=== PATIENT | male | born 1970 | race Caucasian/White ===

== ENCOUNTER 2016-10-26 21:06 | Observation (INO) ==
[2016-10-26] MEDS ORDERED: Ondansetron 4 MG/2 ML VIAL IVP ONE (22:30)
[2016-10-26] MEDS ORDERED: 0.9 % Sodium Chloride 1,000 ML IVC ONE (22:30)
[2016-10-26] MEDS ORDERED: *HR* HYDROmorphone (PF) 1 MG/ML SYRINGE IVP ONE (22:30)
--- NOTE | 2016-10-26 22:33 | Emergency Department Note ---
Disposition Clinical Impression: Acute appendicitis Qualifiers: Acute appendicitis type: with localized peritonitis Qualified Code(s): K35.3 - Acute appendicitis with localized peritonitis Disposition: Admitted As Inpatient Condition: Fair Referrals: NO,PCP [Non-Partnered Physician] - Forms: Work/School Release, ED Satisfaction Letter Time of Disposition: 23:15 Abdominal Pain HPI - General Chief Complaint: ED Abdominal Pain Stated Complaint: "i might have appendacitis" Time Seen by Provider: 10/26/16 22:27 Source: patient, family Mode of arrival: private vehicle Limitations: no limitations Nursing Notes Reviewed: Yes Vital Signs Reviewed: Yes - History of Present Illness Pt Subjective Complaint: abdominal pain Onset (ago): hour(s) (Started last night after dinner.) Consistency: constant, Worsening (Was gradual in onset and progressively worsening) Location: RLQ Pain Severity: severe Pain Scale: 9 Quality: sharp Radiation: none Migration to: no migration Improves with: nothing Worsens with: movement Associated symptoms: Reports: nausea, vomiting Treatments prior to arrival: none - Related Data Home Medications Medication Instructions Recorded Confirmed Atenolol [Tenormin] 50 mg PO DAILY 08/13/15 10/26/16 Allergies Allergy/AdvReac Type Severity Reaction Status Date / Time Amoxicillin Allergy Hives Verified 10/26/16 22:00 All systems ED: reviewed and negative except as stated. Constitutional: Denies: fever, chills ENT ED: Denies: ear pain, throat pain Cardiovascular: Denies: chest pain, palpitations Respiratory: Denies: cough, dyspnea Gastrointestinal: Reports: abdominal pain, nausea, vomiting Genitourinary: Denies: urgency, dysuria Musculoskeletal: Denies: back pain Integumentary: Denies: rash Abdominal Pain PMH - Past Medical History Medical history: Reports: coronary artery disease, hypertension Male Surgical History: Reports: non-contributory, other Psychiatric history: Reports: no psych history - Social History Smoking status: Current every day smoker Alcohol use: Reports: none Drug use: Reports: none Physical Exam - General Limitations: no limitations General appearance: alert - Head Head exam: atraumatic, normocephalic - Eye Eye exam: Present: normal appearance, PERRL - ENT ENT exam: normal exam, normal oropharynx, normal external ear exam - Neck Neck exam: Present: normal inspection, full ROM - Chest Chest inspection: Present: normal inspection, symmetric chest wall rise. Absent : tenderness - Respiratory Respiratory exam: Present: normal lung sounds bilaterally. Absent: respiratory distress - Cardiovascular Cardiovascular exam: Present: normal rhythm, tachycardia, normal heart sounds - Abdominal Exam Abdominal exam: Present: soft, tenderness, Rovsing's sign (Mild) Abdominal tenderness: Present: RLQ - Extremities Exam Extremities exam: Present: normal inspection, full ROM - Neurological Exam Neurological exam: Present: alert, oriented X3 - Psychiatric Psychiatric exam: Present: normal affect, normal mood - Skin Skin exam: Present: warm, dry. Absent: rash Course Course Narrative: Patient presents with abdominal pain since yesterday. The exam is very concerning for appendicitis. We will put an IV into him and give him some fluids. Lab workup will be started. I am going for the CT scan of the abdomen as well. Disposition will be based on diagnostic results and reevaluation. - Consultations Consultation #1: Radiologist called and said that the CAT scan shows acute appendicitis. I will call surgery. Time: 23:11 Consultation #2: Chantel, surgery - I's discussed the case with the surgeon behavioral consultant. She states that she will be right here to see the patient.. Time: 23:14 Vital Signs Temperature 99.3 F 10/26/16 22:01 Pulse Rate 116 10/26/16 22:01 Respiratory Rate 18 10/26/16 22:01 Blood Pressure 142/83 10/26/16 22:01 O2 Sat by Pulse Oximetry 98 10/26/16 22:01 Temperature 99.3 F 10/26/16 22:01 Pulse Rate 116 10/26/16 22:01 Respiratory Rate 18 10/26/16 22:01 Blood Pressure 142/83 10/26/16 22:01 O2 Sat by Pulse Oximetry 98 10/26/16 22:01 Oxygen Delivery Oxygen Delivery Room Air Abdominal Pain - Lab Data Lab results reviewed: Yes I reviewed the patient's lab results. Result diagrams: 10/26/16 22:39 10/26/16 22:39 Lab Results 10/26/16 10/26/16 Range/Units 22:39 22:39 WBC 21.5 H (4.3-11.1) K/mcL RBC 6.01 H (4.19-5.50) M/mcL Hgb 17.6 H (12.9-16.9) g/dL Hct 51.1 H (37.5-50.1) % MCV 85.0 (83.0-100.0) fL MCH 29.3 (28.0-33.3) pg MCHC 34.4 (31.6-35.5) g/dL RDW 13.2 (11.5-14.5) % Plt Count 193 (140-400) K/mcL MPV 10.4 (9.4-12.4) fL Immature Gran % 0.4 (0-4) % Seg Neutrophils % 86.3 % Lymphocytes % 7.6 % Monocytes % 5.5 % Eosinophils % 0.0 % Basophils % 0.2 % Neutrophils # 18.5 H (1.6-8.9) K/mcL Lymphocytes # 1.6 (0.6-4.6) K/mcL Monocytes # 1.2 (0.0-1.3) K/mcL Eosinophils # 0.0 (0.0-0.6) K/mcL Basophils # 0.0 (0.0-0.2) K/mcL Sodium 137 (136-145) mEq/L Potassium 4.0 (3.5-4.5) mEq/L Chloride 105 (98-109) mEq/L Carbon Dioxide 21 (19-29) mEq/L BUN 14 (8-26) mg/dL Creatinine 0.80 (0.72-1.25) mg/dL Est GFR ( Amer) > 60 (> 60) Est GFR (Non-Af Amer) > 60 (> 60) BUN/Creatinine Ratio 18 (6-26) Glucose 115 H (70-99) mg/dL Calculated Osmolality 285 (280-300) Calcium 9.4 (8.6-10.8) mg/dL Total Bilirubin 0.6 (0.2-1.2) mg/dL Direct Bilirubin 0.2 (0.0-0.5) mg/dL Indirect Bilirubin 0.4 (0.0-1.2) mg/dL AST 14 (5-34) Units/L ALT 19 (0-55) Units/L Alkaline Phosphatase 74 (38-126) Units/L Serum Total Protein 7.5 (6.0-8.3) g/dL Albumin 4.0 (3.5-5.0) g/dL Globulin 3.5 (2.4-3.5) g/dL Albumin/Globulin Ratio 1.1 (1.1-2.2) Amylase 33 (25-125) Units/L Lipase 14 (8-78) Units/L - Radiology Data Radiology results reviewed: Yes I reviewed the patient's radiology results.
[2016-10-26 22:45] LABS: Basophils % 0.2 %; Hematocrit 51.1 % (37.5-50.1); Hemoglobin 17.6 g/dL (12.9-16.9); Immature Granulocytes % 0.4 % (0-4); Lymphocytes # 1.6 K/mcL (0.6-4.6); Lymphocytes % 7.6 %; Mean Corpuscular HGB Conc 34.4 g/dL (31.6-35.5); Mean Corpuscular Hemoglobin 29.3 pg (28.0-33.3); Mean Platelet Volume 10.4 fL (9.4-12.4); Monocytes # 1.2 K/mcL (0.0-1.3); Monocytes % 5.5 %; Neutrophils # 18.5 K/mcL (1.6-8.9); Platelet Count 193 K/mcL (140-400); Red Blood Count 6.01 M/mcL (4.19-5.50); Red Cell Distribution Width 13.2 % (11.5-14.5); Segmented Neutrophils % 86.3 %
[2016-10-26 22:59] LABS: Alanine Aminotransferase 19 Units/L (0-55); Albumin/Globulin Ratio 1.1 (1.1-2.2); Alkaline Phosphatase 74 Units/L (38-126); Amylase 33 Units/L (25-125); Aspartate Amino Transferase 14 Units/L (5-34); BUN/Creatinine Ratio 18 (6-26); Bilirubin,Direct 0.2 mg/dL (0.0-0.5); Bilirubin,Indirect 0.4 mg/dL (0.0-1.2); Bilirubin,Total 0.6 mg/dL (0.2-1.2); Blood Urea Nitrogen 14 mg/dL (8-26); Calcium 9.4 mg/dL (8.6-10.8); Carbon Dioxide 21 mEq/L (19-29); Chloride 105 mEq/L (98-109); Globulin 3.5 g/dL (2.4-3.5); Glucose 115 mg/dL (70-99); Lipase 14 Units/L (8-78); Osmolality,Calculated 285 (280-300); Sodium 137 mEq/L (136-145); Total Protein 7.5 g/dL (6.0-8.3); eGFR For African Americans > 60 (> 60); eGFR For Non-African Americans > 60 (> 60)
[2016-10-26] MEDS ORDERED: *HR* Rocuronium Bromide 50 MG/5 ML VIAL ONE (23:47)
[2016-10-26] MEDS ORDERED: *HR* Propofol 200 MG/20 ML VIAL IVP ONE (23:47)
[2016-10-26] MEDS ORDERED: Dexamethasone 4 MG/ML VIAL ONE (23:47)
[2016-10-26] MEDS ORDERED: *HR* Succinylcholine 200 MG/10 ML VIAL IVP ONE (23:47)
[2016-10-26] MEDS ORDERED: *HR* FentaNYL (PF) 100 MCG/2 ML VIAL ONE (23:47)
[2016-10-26] MEDS ORDERED: Lidocaine -MPF 2% 2 ML VIAL ONE (23:47)
[2016-10-26] MEDS ORDERED: *HR* Midazolam HCl 2 MG/2 ML VIAL ONE (23:47)
[2016-10-26] MEDS ORDERED: *HR* Morphine 10 MG/ML VIAL ONE (23:47)
[2016-10-26] MEDS ORDERED: Ondansetron 4 MG/2 ML VIAL ONE (23:47)
[2016-10-26] MEDS ORDERED: Levofloxacin 750 MG/150 ML 750 MG/150 ML BAG IVPB ONE (23:50)
[2016-10-26] MEDS ORDERED: MetroNIDAZOLE 500 MG/100 ML 500 MG/100 ML BAG IVPB ONE (23:50)
--- NOTE | 2016-10-26 23:55 | General Surg History&Physical ---
Date of Encounter: 10/26/16 Time of Encounter: 11:54 Assessment and Plan (1) Leukocytosis Current Visit: Yes Status: Acute The assessment and plan as outlined above was discussed with the patient and/or family members who expressed understanding and agreement. All questions were answered. start abx, trend wbc Qualifiers: Leukocytosis type: unspecified Qualified Code(s): D72.829 - Elevated white blood cell count, unspecified (2) HTN (hypertension) Current Visit: Yes Status: Acute The assessment and plan as outlined above was discussed with the patient and/or family members who expressed understanding and agreement. All questions were answered. home beta suzi therapy Qualifiers: Hypertension type: essential hypertension Qualified Code(s): I10 - Essential (primary) hypertension (3) Nausea and vomiting Current Visit: Yes Status: Acute The assessment and plan as outlined above was discussed with the patient and/or family members who expressed understanding and agreement. All questions were answered. prn antiemetics Qualifiers: Vomiting type: unspecified Vomiting Intractability: intractable Qualified Code(s): R11.2 - Nausea with vomiting, unspecified (4) Acute appendicitis Current Visit: Yes Status: Acute The assessment and plan as outlined above was discussed with the patient and/or family members who expressed understanding and agreement. All questions were answered. discussed CT scan with patient, shows acute appendicitis, will plan laparoscopic appendectomy, possible open. Risks and benefits discussed and he wishes to proceed npo prn pain control antiemetics abx Qualifiers: Acute appendicitis type: with localized peritonitis Qualified Code(s): K35.3 - Acute appendicitis with localized peritonitis History of Present Illness Chief complaint: abdominal pain HPI: Mr. Lu is a 45 year old male who last night developed right lower quadrant pain which she described as crampy and at times sharp. The pain does not radiate. He states the car ride in to the hospital was extremely painful as his accidentally hit were rumble strips. He has been having nausea and vomiting overnight. He denies any diarrhea. He has no dysuria. He denies any fevers. Past Med Surg Social Fam HX - Past Medical History Source: patient Medical history: coronary artery disease, hypertension Psychiatric history: no psych history - Past Surgical History Surgical History: other (wisdom teeth extraction) - Social History Smoking Status: Current every day smoker Smokeless Tobacco Status: No Alcohol use: none Drug use: none - Family History Grandmother History Unknown: Yes Medications and Allergies Atenolol [Tenormin] 50 mg PO DAILY 08/13/15 [History] Allergies Amoxicillin Allergy (Verified 10/26/16 22:00) Hives Review of Systems All systems PM: reviewed and no additional remarkable complaints except as stated All systems PM: A 10-system review of systems was performed and is negative for pertinent findings except as documented above in the HPI. General Surgery Exam Initial Vital Signs Temp Pulse Resp BP Pulse Ox 99.3 F 116 18 142/83 98 10/26/16 22:01 10/26/16 22:01 10/26/16 22:01 10/26/16 22:01 10/26/16 22:01 - General physical appearance well developed, well nourished, no distress - Eyes PERRL, normal ocular movement - ENT normal mucosa, atraumatic, normocephalic - Neck trachea midline - Respiratory normal expansion, clear to auscultation - Cardiovascular Cardiovascular exam: Present: RRR, no murmurs/rubs/gallops - Abdomen Abdomen general surgery: Present: bowel sounds present, soft, tender. Absent: guarding, rebound Abdominal Tenderness: Present: RLQ - Integumentary Integumentary general surgery: Present: warm and dry, no abnormal pigmentation - Neurologic Present: CN 2-12 grossly intact - Musculoskeletal Present: normal gait, normal posture - Psychiatric Psychiatric general surgery: Present: A&Ox3, oriented to time, speech is normal Results - Labs 10/26/16 22:39 10/26/16 22:39 Abnormal lab results WBC 21.5 K/mcL (4.3-11.1) H 10/26/16 22:39 RBC 6.01 M/mcL (4.19-5.50) H 10/26/16 22:39 Hgb 17.6 g/dL (12.9-16.9) H 10/26/16 22:39 Hct 51.1 % (37.5-50.1) H 10/26/16 22:39 Neutrophils # 18.5 K/mcL (1.6-8.9) H 10/26/16 22:39 Glucose 115 mg/dL (70-99) H 10/26/16 22:39 All other labs normal. - Imaging CT scan - abdomen: report reviewed, image reviewed CT scan - pelvis: report reviewed, image reviewed
--- NOTE | 2016-10-26 23:56 | Anesthesia Evaluation PreOp ---
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: Denies Any Significant HX Other Medical History: Denies Any Significant HX Anesthesia History: Past Anesthesia (no prior surgery) Alcohol Use: occasionally Drug use: marijuana Medications and Allergies Atenolol [Tenormin] 50 mg PO DAILY 08/13/15 [History] Allergies Amoxicillin Allergy (Verified 10/26/16 22:00) Hives - Meds/Allergy Pre-op Review Medications Reviewed: Yes Allergies Reviewed: Yes Beta Blockers on Current Med List: Yes If Beta Blockers taken, Date/Time (Last Dose taken): 10/26/2016 at 0600 Anesthesia Results - Labs 10/26/16 22:39 10/26/16 22:39 Anesthesia Exam Vital Signs/O2 Sat, Most Current Temp Pulse Resp BP Pulse Ox 99.3 F 116 18 142/83 98 10/26/16 22:01 10/26/16 22:01 10/26/16 22:01 10/26/16 22:01 10/26/16 22:01 Height: 5'10''/1.78 m Weight: 180 lbs/81.647 kg NPO (# of Hours): 8 Pain Scale: 5 Pain Scale Used: Numeric (1 - 10) - HEENT Pupil (Motor): EOMI Mallampati: II Teeth: Normal Oral Opening: Greater than 3 - ORIENTATION AND MOBILITY INSTRUCTOR LOC: Oriented ORIENTATION AND MOBILITY INSTRUCTOR Motor: Normal RUE, Normal LUE, Normal RLE, Normal LLE, Normal Face ORIENTATION AND MOBILITY INSTRUCTOR Sensory: Normal: RUE, LUE, RLE, LLE, Face - Cardiac Rhythm: Regular Murmur: None - Pulmonary Breath Sounds: bilateral Clear Respiratory Effort: Symmetrical Anesthesia Assess/Plan ASA Score: 2 Modified Melvin Scale for Level of Consciousness: Cooperative, oriented, and tranquil Anesthetic Plan: General Monitoring Plan: Standard Monitors Recovery Plan: PACU
[2016-10-27] MEDS ORDERED: Albuterol 2.5 MG/3 ML NEBULIZER IH ONE
[2016-10-27] MEDS ORDERED: CefOXitin 1,000 MG VIAL ONE (00:43)
[2016-10-27] MEDS ORDERED: Neostigmine Methylsulfate 3 MG/3 ML SYRINGE ONE (01:19)
--- NOTE | 2016-10-27 01:44 | Operative Note ---
Date of procedure: 10/27/16 Pre-op diagnosis: acute appendicitis Post-op diagnosis: same Procedure: laparoscopic appendectomy Complications: none immediate Anesthesia: GETA, local Local Anesthetics: 0.5% Sensorcaine HCL SubQ (cc) (30) Surgeon: Maryam Golden Electronics Detail Draftsperson Other: Shila Robbins Estimated blood loss (cc): 3 Specimen: appendix Condition: stable Disposition: PACU Procedure in Detail: The patient was brought into the operating suite and placed supine on the operating table. Sign-in was performed and everyone was in agreement. Anesthesia was induced and patient was endotracheally intubated by anesthesia without incident. An OG tube was placed by anesthesia. A Singh catheter was placed by the circulating nurse. The abdomen was prepped and draped in the usual sterile fashion. A timeout was performed and again everyone was in agreement. A supraumbilical incision was made through the skin and the subcutaneous tissue with an 11 blade. Towel clamps were placed on either side of the umbilicus for retraction. S-retractors were used to dissect down to the anterior abdominal wall linea alba fascia. A Veress needle was placed into this incision and a water drop test confirmed placement and the abdomen was insufflated. We then entered the abdomen with the 5 mm 0 degree laparoscope on a 5 mm Optiview trocar. The area under entry was visualized and there was no bleeding and no apparent bowel injury. We placed a suprapubic 5 mm port under direct visualization after first incising the skin with an 11 blade. The laparoscope was placed through this and we exchanged the supraumbilical port for a 12 mm port under direct visualization. We then placed another 5 mm port in the left lower quadrant position under direct visualization after first incising the skin with an 11 blade. The patient was placed in slight Trendelenburg left side down position. The cecum was located as was the appendix. The appendix was grasped and retracted anteriorly and caudally with a laparoscopic [place]. A [place] was used to dissect between the mesoappendix and the appendix at the base of the cecum. The mesoappendix was transected with a laparoscopic flex-ex ETS stapler using a white load. The appendix was transected at the base of the cecum with the same stapler utilizing a blue load. The appendix was placed in a laparoscopic Endo Catch bag and removed via the supraumbilical incision site. Both staple lines were evaluated and there was no bleeding and both staple lines were intact. The area was irrigated with sterile saline which was then suctioned free from the abdomen. The insufflation was suctioned free from the abdomen and all trochars removed. We closed the abdominal wall at the supraumbilical incision site with an 0 Vicryl [id number] stitch. A 30 cc of 0.5% Marcaine was injected subcutaneously at the 3 port sites. The skin at the two 5 mm port sites was closed with 4-0 Monocryl interrupted subcuticular stitches. The skin at the supraumbilical incision site was closed with a 4-0 Monocryl running subcuticular stitch. Steri-Strips were applied to the wounds. The Singh catheter was removed. The patient was extubated in the OR and tolerated the procedure well and was taken to PACU after all lap and instrument counts were correct at the end of the case.
[2016-10-27] MEDS: *HR* HYDROmorphone (PF) 1 MG/ML SYRINGE IVP PRN ×3 (01:51→02:10)
--- NOTE | 2016-10-27 02:22 | Anesthesia Evaluation Post Op ---
Date of Encounter: 10/27/16 Time of Encounter: 02:21 - Vital Signs Vital Signs: Vital Signs/O2 Sat, Most Current Temp Pulse Resp BP Pulse Ox 100.7 F H 105 16 136/76 92 L 10/27/16 02:15 10/27/16 02:15 10/27/16 02:15 10/27/16 02:15 10/27/16 02:15 - Lungs Lungs: Clear Ascult./Percussion - Airway Airway: Non-obstructed - Cardiovascular Regular Rate - Mental Status Mental Status: Alert & Oriented, Answers Appropriately - Pain Pain Scale: 4 Pain Scale used: Numeric (1 - 10) - Nausea Vomiting Nausea Vomiting: Not Present - Hydration Hydration: NPO, Has not voided - Discharge PostOp Status: Transfer Patient to floor
[2016-10-27] MEDS ORDERED: 0.9 % Sodium Chloride 1,000 ML IVC SCH ×2 (02:51→11:05)
[2016-10-27] MEDS ORDERED: *HR* OxyCODONE/APAP 5/325 TABLET PO PRN (02:51)
[2016-10-27] MEDS ORDERED: *HR* Promethazine 25 MG/ML VIAL IVP PRN (02:51)
[2016-10-27] MEDS ORDERED: *HR* Metoprolol 5 MG/5 ML VIAL IVP PRN (02:51)
[2016-10-27] MEDS ORDERED: *HR* HYDROmorphone (PF) 1 MG/ML SYRINGE IVP PRN (02:51)
[2016-10-27] MEDS ORDERED: Naloxone 0.4 MG/ML INJ IVP PRN (02:51)
[2016-10-27] MEDS ORDERED: Ondansetron 4 MG/2 ML VIAL IVP PRN (02:51)
[2016-10-27 06:01] LABS: Basophils % 0.2 %; Hematocrit 48.5 % (37.5-50.1); Hemoglobin 16.6 g/dL (12.9-16.9); Immature Granulocytes % 0.6 % (0-4); Lymphocytes # 0.9 K/mcL (0.6-4.6); Lymphocytes % 4.3 %; Mean Corpuscular HGB Conc 34.2 g/dL (31.6-35.5); Mean Corpuscular Hemoglobin 30.1 pg (28.0-33.3); Mean Corpuscular Volume 87.9 fL (83.0-100.0); Monocytes # 0.9 K/mcL (0.0-1.3); Monocytes % 4.3 %; Neutrophils # 18.1 K/mcL (1.6-8.9); Platelet Count 185 K/mcL (140-400); Red Blood Count 5.52 M/mcL (4.19-5.50); Red Cell Distribution Width 13.2 % (11.5-14.5); Segmented Neutrophils % 90.6 %
[2016-10-27 06:18] LABS: BUN/Creatinine Ratio 13 (6-26); Blood Urea Nitrogen 11 mg/dL (8-26); Calcium 8.9 mg/dL (8.6-10.8); Carbon Dioxide 23 mEq/L (19-29); Chloride 106 mEq/L (98-109); Glucose 130 mg/dL (70-99); Osmolality,Calculated 285 (280-300); Potassium 4.2 mEq/L (3.5-4.5); Sodium 137 mEq/L (136-145); eGFR For African Americans > 60 (> 60); eGFR For Non-African Americans > 60 (> 60)
[2016-10-27] MEDS ORDERED: MetroNIDAZOLE 500 MG/100 ML 500 MG/100 ML BAG IVPB SCH (08:00)
[2016-10-27] MEDS ORDERED: Levofloxacin 750 MG/150 ML 750 MG/150 ML BAG IVPB SCH (09:00)
--- NOTE | 2016-10-27 11:41 | Discharge Summary ---
<Leyda Gaytan Santi - Last Filed: 10/27/16 14:51> Date of Encounter: 10/27/16 Time of Encounter: 11:39 - Discharge Diagnosis (1) Acute appendicitis Priority: Primary Status: Resolved Qualifiers: Acute appendicitis type: with localized peritonitis Qualified Code(s): K35.3 - Acute appendicitis with localized peritonitis (2) HTN (hypertension) Priority: Secondary Status: Chronic Qualifiers: Hypertension type: essential hypertension Qualified Code(s): I10 - Essential (primary) hypertension (3) Leukocytosis Priority: Secondary Status: Acute Qualifiers: Leukocytosis type: unspecified Qualified Code(s): D72.829 - Elevated white blood cell count, unspecified - Discharge Medications Prescriptions: OxyCODONE/APAP 5/325 [Percocet 5/325 MG] 1 each PO Q4HR PRN #30 tablet PRN Reason: See Comments Docusate [Colace] 100 mg PO BID #30 capsule Home Medications: Atenolol [Tenormin] 50 mg PO DAILY 08/13/15 [History] Docusate [Colace] 100 mg PO BID #30 capsule 10/27/16 [Rx] OxyCODONE/APAP 5/325 [Percocet 5/325 MG] 1 each PO Q4HR PRN #30 tablet 10/27/16 [Rx] Allergies/Adverse Reactions: Allergies Amoxicillin Allergy (Verified 10/27/16 07:43) Hives General Surgery Exam Initial Vital Signs Temp Pulse Resp BP Pulse Ox 99.3 F 116 18 142/83 98 10/26/16 22:01 10/26/16 22:01 10/26/16 22:01 10/26/16 22:01 10/26/16 22:01 - General physical appearance well developed, well nourished, no distress - Eyes normal ocular movement - ENT normal mucosa - Neck trachea midline - Respiratory normal respiratory effort, clear to auscultation - Cardiovascular Cardiovascular exam: Present: RRR, 15, 16 - Abdomen Abdomen general surgery: Present: bowel sounds present, soft, tender (expected postoperative tenderness) - Incision Incision: Present: clean and dry, intact - Integumentary Integumentary general surgery: Present: warm and dry - Neurologic Present: CN 2-12 grossly intact - Musculoskeletal Present: normal gait, normal posture - Psychiatric Psychiatric general surgery: Present: appropriate, oriented to person, oriented to place, oriented to time, speech is normal, memory intact Date of admission: 10/26/16 23:46 Primary care physician: Aditya Elliott CNP Discharging clinician: Maryam Golden (Tricia Gaytan) Anticipated date of discharge: 10/27/16 - Patient Status Disposition: Home, Self-Care Condition: Good Functional capacity at discharge: independent ambulation Overall status at discharge: patient is progressing back to baseline - Discharge Instructions Follow Up With: Aditya Elliott CNP [Primary Care Provider] - Leyda Gaytan CNP [Advanced Practice Nurse] - 11/09/16 11:00 am (surgery follow-up) Additional Instructions: #1 may shower, no tub bath for 2 weeks #2 wash incisions with soap and water and pat dry daily #3 no lifting, pushing, pulling more than 15 pounds for the next 2 weeks #4 no driving until off narcotics for 24 hours and able to safely react in the car #5 may climb stairs - Diet and Activity Activity: other (See additional instructions above) Diet: advance to your usual diet - Hospital Course Hospital course: Mr. Lu is a 46 year old male presented to the ED with abdominal pain with associated nausea/vomiting. He was found to have acute appendicitis and was taken to the operating room for a laparoscopic apendectomy with Dr. Golden. He was given IV antibiotics. On POD #1, he is tolerating liquids without nausea or vomiting, his vitals are stable and he is afebrile, he is voiding and ambulating without difficulty, his pain is well controlled. His WBC is improving as well. Will begin discharge planning and plan for outpatient follow- up in the next 10-14 days. - Time Spent with Patient Total time spent providing and/or coordinating discharge services: Less than 30 minutes Labs on day of discharge: Labs from last 24 hours 10/27/16 10/27/16 05:01 05:01 WBC 20.0 H RBC 5.52 H Hgb 16.6 Hct 48.5 MCV 87.9 MCH 30.1 MCHC 34.2 RDW 13.2 Plt Count 185 MPV 11.0 Immature Gran % 0.6 Seg Neutrophils % 90.6 Lymphocytes % 4.3 Monocytes % 4.3 Eosinophils % 0.0 Basophils % 0.2 Neutrophils # 18.1 H Lymphocytes # 0.9 Monocytes # 0.9 Eosinophils # 0.0 Basophils # 0.0 Sodium 137 Potassium 4.2 Chloride 106 Carbon Dioxide 23 BUN 11 Creatinine 0.83 Est GFR ( Amer) > 60 Est GFR (Non-Af Amer) > 60 BUN/Creatinine Ratio 13 Glucose 130 H Calculated Osmolality 285 Calcium 8.9 - Attending Attestation I examined this patient and my medical decision-making was reviewed with the SOFTWARE ARCHITECT/PA/Advanced Practice Nurse/Resident Physician. I agree with the documented findings, disposition and treatment plan as described except to the extent set forth below. <Maryam Golden - Last Filed: 10/29/16 16:38> - Discharge Diagnosis (1) Leukocytosis Status: Acute Qualifiers: Leukocytosis type: unspecified Qualified Code(s): D72.829 - Elevated white blood cell count, unspecified (2) HTN (hypertension) Status: Chronic Qualifiers: Hypertension type: essential hypertension Qualified Code(s): I10 - Essential (primary) hypertension (3) Nausea and vomiting Status: Acute Qualifiers: Vomiting type: unspecified Vomiting Intractability: intractable Qualified Code(s): R11.2 - Nausea with vomiting, unspecified (4) Acute appendicitis Status: Resolved Qualifiers: Acute appendicitis type: with localized peritonitis Qualified Code(s): K35.3 - Acute appendicitis with localized peritonitis General Surgery Exam Initial Vital Signs Temp Pulse Resp BP Pulse Ox 99.3 F 116 18 142/83 98 10/26/16 22:01 10/26/16 22:01 10/26/16 22:01 10/26/16 22:01 10/26/16 22:01 Date of admission: 10/26/16 23:46 Primary care physician: Aditya Elliott CNP - Hospital Course Hospital course: Mr. Lu is a 46 year old male - Time Spent with Patient Total time spent providing and/or coordinating discharge services:
[2016-10-27 12:02] LABS: Bilirubin,Urine Negative (Negative); Blood,Urine Negative (Negative); Clarity,Urine Clear (Clear); Color,Urine Yellow (Yellow); Glucose,Urine (UA) Normal (Normal); Ketones,Urine Negative (Negative); Leukocyte Esterase,Urine Negative (Negative); Nitrite,Urine Negative (Negative); PH,Urine 6.5 pH Units (5.0-8.0); Protein,Urine Negative (Neg-Trace); Specific Gravity,Urine 1.007 (1.010-1.025); Urobilinogen,Urine Normal (Normal)
[2016-10-27 12:24] VITALS: BP 108/53
[2016-10-27 14:45] LABS: Basophils % 0.2 %; Hematocrit 46.3 % (37.5-50.1); Hemoglobin 15.7 g/dL (12.9-16.9); Immature Granulocytes % 0.4 % (0-4); Lymphocytes # 2.5 K/mcL (0.6-4.6); Lymphocytes % 12.8 %; Mean Corpuscular HGB Conc 33.9 g/dL (31.6-35.5); Mean Corpuscular Hemoglobin 29.2 pg (28.0-33.3); Mean Corpuscular Volume 86.1 fL (83.0-100.0); Mean Platelet Volume 10.3 fL (9.4-12.4); Monocytes # 1.5 K/mcL (0.0-1.3); Monocytes % 7.6 %; Neutrophils # 15.6 K/mcL (1.6-8.9); Platelet Count 189 K/mcL (140-400); Red Blood Count 5.38 M/mcL (4.19-5.50); Red Cell Distribution Width 13.3 % (11.5-14.5)
== END 2016-10-27 15:24 | disposition home or self-care (01) ==
LOC: 3ANU 21:06 → EMEROO 21:06 → 3ANU 10-27 00:46
PROVIDERS: ADMIT Surgery; ATTEND Surgery